=== PATIENT | male | born 1995 | race Caucasian/White ===

== ENCOUNTER 2017-07-03 19:40 | Emergency (ER) | payer MEDICAID ==
[2017-07-03 19:48] VITALS: BP 154/88
[2017-07-03] MEDS ORDERED: ACETAMINOPHEN 325 MG TABLET PO ONE (20:44)
--- NOTE | 2017-07-03 21:16 | ER Document Report ---
ED Hand/Wrist Injury - General Chief Complaint: L thumb injury Stated Complaint: THUMB INJURY Time Seen by Provider: 07/03/17 20:30 Mode of Arrival: Ambulatory Information source: Patient Notes: 22-year-old male presents to ED for injury to the left thumb. He states he hit it with a hammer accidentally on Monday. States he was hammering a nail into a board and is the nail hit his thumb. He states he has injured his thumb in the past and had to have it reattached. TRAVEL OUTSIDE OF THE [place] IN LAST 30 DAYS: No - HPI Injury to: Thumb Onset: Other - Monday Where: Work Timing: Still present Quality of pain: Sharp, Throbbing Severity: Moderate Pain Level: 3 Context: Other - Accidentally hit with a hammer - Related Data Allergies/Adverse Reactions: No Known Allergies Allergy (Unverified 07/03/17 19:44) Past Medical History - General Information source: Patient - Social History Smoking Status: Current Every Day Smoker Cigarette use (# per day): Yes - Pack per day Chew tobacco use (# tins/day): No Smoking Education Provided: Yes - 4 minutes Frequency of alcohol use: Social Drug Abuse: None 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 denies: COPD, DM, Thyroid Disfunction Patient has suicidal ideation: No Patient has homicidal ideation: No - Past Medical History Cardiac Medical History: Reports: Hx Hypertension Pulmonary Medical History: Reports: Hx Pneumonia Neurological Medical History: Reports: None, Hx Seizures - April 2016 from stress when his mother Endocrine Medical History: Reports: None Renal/ Medical History: Reports: None Malignancy Medical History: Reports None GI Medical History: Reports: None Musculoskeltal Medical History: Reports Hx Arthritis, Reports Hx Musculoskeletal Deformity, Reports Hx Musculoskeletal Trauma Skin Medical History: Reports None Psychiatric Medical History: Reports: Hx Anxiety, Hx Attention Deficit Hyperactivity Disorder, Hx Depression, Other - Panic attacks Traumatic Medical History: Reports: Hx Fractures - Right wrist right clavicle nose right ankle and all fingers Infectious Medical History: Reports: None Past Surgical History: Reports: Hx Orthopedic Surgery - Left thumb reattached and right wrist Review of Systems - Review of Systems Constitutional: No symptoms reported EENT: No symptoms reported Cardiovascular: No symptoms reported Respiratory: No symptoms reported Gastrointestinal: No symptoms reported Genitourinary: No symptoms reported Male Genitourinary: No symptoms reported Musculoskeletal: Other - Left thumb pain swelling bruising Skin: Change in color Hematologic/Lymphatic: No symptoms reported Neurological/Psychological: No symptoms reported -: Yes All other systems reviewed and negative Physical Exam - Vital signs Vitals: Temp Pulse Resp BP Pulse Ox 98.0 F 98 18 154/88 H 100 07/03/17 19:47 07/03/17 19:47 07/03/17 19:47 07/03/17 19:47 07/03/17 19:47 Interpretation: Normal - General General appearance: Appears well, Alert - HEENT Head: Normocephalic, Atraumatic Eyes: Normal Pupils: PERRL - Respiratory Respiratory status: No respiratory distress Chest status: Nontender Breath sounds: Normal Chest palpation: Normal - Cardiovascular Rhythm: Regular Heart sounds: Normal auscultation Murmur: No - Abdominal Inspection: Normal Distension: No distension Bowel sounds: Normal Tenderness: Nontender Organomegaly: No organomegaly - Back Back: Normal, Nontender - Extremities General upper extremity: Normal inspection, Nontender, Normal color, Normal ROM , Normal temperature General lower extremity: Normal inspection, Nontender, Normal ROM, Normal temperature, Normal weight bearing Shoulder: Normal Arm: Normal Elbow: Normal Forearm: Normal Wrist: Normal Hand: Tender, Ecchymosis, No evidence of human bite, No evidence of FB, Swelling Hip: Normal Thigh: Normal - Neurological Neuro grossly intact: Yes Cognition: Normal Orientation: AAOx4 [place] Coma Scale Eye Opening: Spontaneous [place] Coma Scale Verbal: Oriented [place] Coma Scale Motor: Obeys Commands [place] Coma Scale Total: 15 Speech: Normal Motor strength normal: LUE, RUE, LLE, RLE Sensory: Normal - Psychological Associated symptoms: Normal affect, Normal mood - Skin Skin Temperature: Warm Skin Moisture: Dry Skin Color: Normal Course - Re-evaluation Re-evalutation: 07/04/17 02:28 X-ray discussed with patient and written report given to patient for follow-up with orthopedics. Patient was encouraged to use Tylenol Motrin for his contusion to his thumb and elevated and iced the injury. - Vital Signs Vital signs: Temp Pulse Resp BP Pulse Ox 98.0 F 98 18 154/88 H 100 07/03/17 19:47 07/03/17 19:47 07/03/17 19:47 07/03/17 19:47 07/03/17 19:47 - Diagnostic Test Radiology reviewed: Image reviewed, Reports reviewed Discharge - Discharge Clinical Impression: Contusion of left thumb Qualifiers: Encounter type: initial encounter Damage to nail status: without damage Qualified Code(s): S60.012A - Contusion of left thumb without damage to nail, initial encounter HTN (hypertension) Qualifiers: Hypertension type: unspecified Qualified Code(s): I10 - Essential (primary) hypertension Condition: Stable Disposition: HOME, SELF-CARE Additional Instructions: CONTUSION: Your injury has resulted in a contusion -- a crushing of the deep tissues. No injury to important structures was detected during the physician's exam. Contusions vary in the amount of pain they cause, and in the length of time required for healing. Typically, the area will become bruised, and will remain painful to touch for two or three weeks. However, most patients are back to working and playing within a few days. After the initial period of rest and cold-packs, your symptoms (together with the doctor's recommendations) will determine how rapidly you can get back to full activity. Usually this means "do what feels okay, but don't do things that hurt." If re-examination was recommended, it's important to follow up as instructed. Call the doctor or return any time if pain increases, if swelling becomes severe, if you develop numbness or weakness in an injured extremity, or if any other alarming symptoms occur. USE OF TYLENOL (ACETAMINOPHEN): Acetaminophen may be taken for pain relief or fever control. It's much safer than aspirin, offering a wider range of "safe" dosages. It is safe during . Some brand names are Tylenol, Panadol, Datril, Anacin 3, Tempra, and Liquiprin. Acetaminophen can be repeated every four hours. The following are maximum recommended dosages: WEIGHT Dose Drops Elixir Chewable( 80mg) (LBS.) drprs=droppers tsp=teaspoon 6 40 mg 0.4 ml (1/2) 6-11 80 mg 0.8 ml (full) tsp 1 tab 12-16 120 mg 1 1/2 drprs 3/4 tsp 1 1/2 tabs 17-23 160 mg 2 drprs 1 tsp 2 tabs 24-30 240 mg 3 drprs 1 1/2 tsp 3 tabs 30-35 320 mg 2 tsp 4 tabs 36-41 360 mg 2 1/4 tsp 4 1/2 tabs 42-47 400 mg 2 1/2 tsp 5 tabs 48-53 480 mg 3 tsp 6 tabs 54-59 520 mg 3 1/4 tsp 6 1/2 tabs 60-64 560 mg 3 1/2 tsp 7 tabs 65-70 600 mg 3 3/4 tsp 7 1/2 tabs 71-76 640 mg 4 tsp 8 tabs 77-82 720 mg 4 1/2 tsp 9 tabs 83-88 800 mg 5 tsp 10 tabs >89 pounds or adults 650 mg to 900 mg Acetaminophen can be repeated every four hours. Maximum dose not to exceed 4000 mg a day. These maximum recommended dosages are slightly higher than the dosages written on the product container, but these dosages are very safe and below the toxic dosage for acetaminophen. ICE & ELEVATION: Apply ice packs frequently against the painful area. Many different schedules are recommended, such as "20 minutes on, 20 minutes off" or "one hour ice, two hours rest." If you need to work, you may need to go longer between ice treatments. You should plan to have the area ice packed AT LEAST one- fourth of the time. The ice should be applied over the wrap, tape, or splint, or over a layer of cloth -- not directly against the skin. Some ice bags have a built-in cloth and can be put directly on the skin. Your injured part should be elevated as much as possible over the next 48 hours. Try to keep the injury above the level of the heart. Avoid use of the injured area. Elevation and rest will decrease the swelling. USE OF [id number] IBUPROFEN: Ibuprofen (Advil, Nuprin, Medipren, Motrin IB) is a medication for fever and pain control. In addition, it has anti- inflammatory effects which may be beneficial, especially in the treatment of injuries. It's best to take ibuprofen with food. Persons with ulcer disease or allergy to aspirin should notify their physician of this before taking ibuprofen. Ibuprofen can be given every four to six hours, for a total of four doses daily. Age Pain or fever dose Antiinflammatory dose 6-8 yr 200 mg (1 tab) 200 mg (1 tab) 9-11 yr 200 mg (1 tab) 200-400 mg (1-2 tab) 11-14 yr 200-400 mg (1-2 tab) 400 mg (2 tab) 15-adult 400 mg (2 tab) 600 mg (3 tab) FOLLOW-UP CARE: If you have been referred to a physician for follow-up care, call the physician s office for an appointment as you were instructed or within the next two days. If you experience worsening or a significant change in your symptoms, notify the physician immediately or return to the Emergency Department at any time for re-evaluation. Prescriptions: Ibuprofen 800 mg PO Q8HP PRN #20 tablet PRN Reason: Forms: Elevated Blood Pressure, Smoking Cessation Education, Return to Work Referrals: STU HOFFMANN DO [ACTIVE STAFF] - Follow up as needed
--- NOTE | 2017-07-03 21:32 | RADIOLOGY REPORT (SQ) ---
EXAM DESCRIPTION: FINGER LEFT COMPLETED DATE/TIME: 07/03/2017 8:54 pm REASON FOR STUDY: thumb hit with hammer COMPARISON: None. NUMBER OF VIEWS: Three views. TECHNIQUE: AP, lateral, and oblique images acquired of the left thumb. LIMITATIONS: None. FINDINGS: MINERALIZATION: Normal. BONES: No acute fracture or dislocation. No worrisome bone lesions. SOFT TISSUES: Dorsal distal thumb soft tissue swelling. No foreign body. OTHER: No other significant finding. IMPRESSION: Dorsal distal thumb soft tissue swelling. No underlying fracture. COMMENT: SITE OF TRAUMA/COMPLAINT MARKED/STAMP COMPLETED: Yes TECHNICAL DOCUMENTATION: JOB ID: [id number] [employer]- All Rights Reserved
== END 2017-07-03 22:13 | disposition home or self-care (01) ==
LOC: ER 19:40
DX: S60.012A Contusion of left thumb without damage to nail, initial encounter (principal); I10 Essential (primary) hypertension; W22.8XXA Striking against or struck by other objects, initial encounter; F17.210 Nicotine dependence, cigarettes, uncomplicated
CPT/HCPCS: 99406; 99283; 73140; J3490

== ENCOUNTER 2017-07-09 22:09 | Emergency (ER) | payer SELFPAY ==
[2017-07-09 22:27] VITALS: BP 143/87
[2017-07-09] MEDS ORDERED: BUPIVACAINE HCL 0.75% INJ/PF (7.5 MG/1 ML) 10 ML SDV INJ ONE (22:42)
[2017-07-09] MEDS ORDERED: HYDROCODONE/ACETAMINOPHEN 5-325 MG (6 TAB/ER DISP) PO PRN (23:36)
--- NOTE | 2017-07-09 23:43 | ER Document Report ---
ED Hand/Wrist Injury - General Chief Complaint: Thumb Injury Stated Complaint: THUMB PAIN Time Seen by Provider: 07/09/17 22:31 Mode of Arrival: Ambulatory Information source: Patient Notes: Patient is a 22-year-old male who presents to the ER today for pain to his left thumb after hitting it with a hammer at work. Patient was seen here on 03 July, just a few days ago, for the same injury but states that he had a large blood blister that is now popped and the skin has opened and it is throbbing. Patient comes requesting numbing for the thumb. There is damage to the nail bed. TRAVEL OUTSIDE OF THE [place] IN LAST 30 DAYS: No - Related Data Allergies/Adverse Reactions: No Known Allergies Allergy (Unverified 07/03/17 19:44) Past Medical History - General Information source: Patient - Social History Smoking Status: Unknown if Ever Smoked Family History: Arthritis, CAD, CVA, Hyperlipidemia, Hypertension, Malignancy. denies: COPD, DM, Thyroid Disfunction Patient has suicidal ideation: No Patient has homicidal ideation: No - Past Medical History Cardiac Medical History: Reports: Hx Hypertension Pulmonary Medical History: Reports: Hx Pneumonia Neurological Medical History: Reports: Hx Seizures - April 2016 from stress when his mother Renal/ Medical History: Denies: Hx Peritoneal Dialysis Musculoskeltal Medical History: Reports Hx Arthritis, Reports Hx Musculoskeletal Deformity, Reports Hx Musculoskeletal Trauma Psychiatric Medical History: Reports: Hx Anxiety, Hx Attention Deficit Hyperactivity Disorder, Hx Depression Traumatic Medical History: Reports: Hx Fractures - Right wrist right clavicle nose right ankle and all fingers Past Surgical History: Reports: Hx Orthopedic Surgery - Left thumb reattached and right wrist Review of Systems - Review of Systems Constitutional: No symptoms reported EENT: No symptoms reported Cardiovascular: No symptoms reported Respiratory: No symptoms reported Gastrointestinal: No symptoms reported Genitourinary: No symptoms reported Male Genitourinary: No symptoms reported Musculoskeletal: See HPI Skin: See HPI Hematologic/Lymphatic: No symptoms reported Neurological/Psychological: No symptoms reported Physical Exam - Vital signs Vitals: Temp Pulse Resp BP Pulse Ox 97.6 F 79 20 143/87 H 100 07/09/17 22:26 07/09/17 22:26 07/09/17 22:26 07/09/17 22:26 07/09/17 22:26 - Notes Notes: PHYSICAL EXAMINATION: GENERAL: Well-appearing and in no acute distress. HEAD: Atraumatic, normocephalic. EYES: Pupils equal round and reactive to light, extraocular movements intact, sclera anicteric, conjunctiva are normal. NECK: Normal range of motion, supple without lymphadenopathy LUNGS: CTAB and equal. No wheezes rales or rhonchi. HEART: Regular rate and rhythm without murmurs EXTREMITIES: Normal range of motion, no pitting edema. No cyanosis. NEUROLOGICAL: Cranial nerves grossly intact. Normal sensory/motor exams. PSYCH: Normal mood, normal affect. SKIN: Warm, Dry, normal turgor, left thumb with open wound at the base of the nailbed, no bleeding, no erythema or purulent drainage Course - Re-evaluation Re-evalutation: 07/09/17 23:43 Digital block was achieved successfully with Sensorcaine to the left thumb. Patient feeling better. - Vital Signs Vital signs: Temp Pulse Resp BP Pulse Ox 97.6 F 79 20 143/87 H 100 07/09/17 22:26 07/09/17 22:26 07/09/17 22:26 07/09/17 22:26 07/09/17 22:26 Procedures - Additional Procedures digital block Time performed: 23:40 Additional Procedures: Other - DIGITAL THUMB BLOCK LEFT THUMB, WITH SENSORCAINE 0.75% AT BASE OF THUMB, DORSAL THUMB AND LOCALLY AROUND WOUND, NO BLEEDING, PT TOLERATED WELL, TOTAL OF 6 CC SENSORCAINE USED Discharge - Discharge Clinical Impression: Contusion of left thumb Qualifiers: Encounter type: initial encounter Damage to nail status: with damage Qualified Code(s): S60.112A - Contusion of left thumb with damage to nail, initial encounter Condition: Stable Disposition: HOME, SELF-CARE Additional Instructions: Return immediately for any new or worsening symptoms. Follow up with primary care provider, call tomorrow to make followup appointment. Forms: Return to Work
== END 2017-07-09 23:49 | disposition home or self-care (01) ==
LOC: ER 22:09
PROC: 3E0T3BZ Introduction of Anesthetic Agent into Peripheral Nerves and Plexi, Percutaneous Approach (ICD-10-PCS; principal; 2017-07-09)
DX: S60.112A Contusion of left thumb with damage to nail, initial encounter (principal); R20.0 Anesthesia of skin; W22.8XXA Striking against or struck by other objects, initial encounter
CPT/HCPCS: 99283; 64455; J3490

== ENCOUNTER 2017-11-18 18:32 | Emergency (ER) | payer SELFPAY ==
[2017-11-18] MEDS ORDERED: FENTANYL CITRATE INJ/PF 100 MCG/2 ML AMPUL IV ONE (18:59)
--- NOTE | 2017-11-18 19:00 | ER Document Report ---
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 Fell off landed on a bit of a trailer. Landed on his abdomen. Having severe pain in his abdomen and only getting worse. Today feels extremely weak and having a hard time getting anything down. States that he has had multiple injuries he has never felt like this before. Pain is located in the central abdomen. Located in the mid back as well. Denied hitting his head. No loss of consciousness. No neck pain. No shortness of breath. I have greeted and performed a rapid initial assessment of this patient. A comprehensive ED assessment and evaluation of the patient, analysis of test results and completion of the medical decision making process will be conducted by additional ED providers. TRAVEL OUTSIDE OF THE [place] IN LAST 30 DAYS: No - Related Data Allergies/Adverse Reactions: No Known Allergies Allergy (Unverified 07/03/17 19:44) Past Medical History - General Information source: Patient - Social History Chew tobacco use (# tins/day): No Frequency of alcohol use: 2 beers a day Drug Abuse: Marijuana Lives with: Spouse/Significant other Family history: Reviewed & Not Pertinent - Past Medical History Cardiac Medical History: Reports: Hx Hypertension Pulmonary Medical History: Reports: Hx Pneumonia Neurological Medical History: Reports: Hx Seizures - April 2016 from stress when his mother Renal/ Medical History: Denies: Hx Peritoneal Dialysis Musculoskeltal Medical History: Reports Hx Arthritis, Reports Hx Musculoskeletal Deformity, Reports Hx Musculoskeletal Trauma Psychiatric Medical History: Reports: Hx Anxiety, Hx Attention Deficit Hyperactivity Disorder, Hx Depression Traumatic Medical History: Reports: Hx Fractures - Right wrist right clavicle nose right ankle and all fingers Past Surgical History: Reports: Hx Orthopedic Surgery - Left thumb reattached and right wrist Review of Systems - Review of Systems Constitutional: Malaise, Weakness. denies: Fever EENT: No symptoms reported. denies: Double vision, Ear pain, Throat pain, Difficulty swallowing, Throat swelling, Mouth pain Cardiovascular: denies: Chest pain, Palpitations, Heart racing Respiratory: denies: Cough, Hurts to breathe, Short of breath, Wheezing Gastrointestinal: Abdominal pain, Nausea. denies: Vomiting, Black stools, Rectal bleeding Genitourinary: No symptoms reported Male Genitourinary: No symptoms reported Musculoskeletal: Back pain, Muscle pain, Muscle stiffness. denies: Joint pain Skin: No symptoms reported Hematologic/Lymphatic: No symptoms reported Neurological/Psychological: No symptoms reported, Weakness. denies: Confusion, Numbness Physical Exam - Vital signs Vitals: Temp Pulse Resp BP Pulse Ox 99.0 F 96 20 133/60 H 97 11/18/17 18:41 11/18/17 18:41 11/18/17 18:41 11/18/17 18:41 11/18/17 18:41 Interpretation: Normal - General General appearance: Appears well, Alert - HEENT Head: Normocephalic, Atraumatic Eyes: Normal Pupils: PERRL - Respiratory Respiratory status: No respiratory distress Chest status: Nontender Breath sounds: Normal Chest palpation: Normal - Cardiovascular Rhythm: Regular Heart sounds: Normal auscultation Murmur: No - Abdominal Inspection: Normal Distension: No distension Bowel sounds: Normal Tenderness: Tender, Other - Tenderness epigastric region. Guarding. Organomegaly: No organomegaly - Back Back: Normal, Tender - Tenderness in the mid thoracic and lumbar spine area. No obvious step-offs. - Extremities General upper extremity: Normal inspection, Nontender, Normal color, Normal ROM , Normal temperature General lower extremity: Normal inspection, Nontender, Normal color, Normal ROM , Normal temperature, Normal weight bearing. No: Kareen's sign - Neurological Neuro grossly intact: Yes Cognition: Normal Orientation: AAOx4 [place] Coma Scale Eye Opening: Spontaneous [place] Coma Scale Verbal: Oriented [place] Coma Scale Motor: Obeys Commands [place] Coma Scale Total: 15 Speech: Normal Motor strength normal: LUE, RUE, LLE, RLE Sensory: Normal - Psychological Associated symptoms: Normal affect, Normal mood - Skin Skin Temperature: Warm Skin Moisture: Dry Skin Color: Normal Course - Vital Signs Vital signs: Temp Pulse Resp BP Pulse Ox 99.0 F 96 16 133/60 H 97 11/18/17 18:41 11/18/17 18:41 11/18/17 18:59 11/18/17 18:41 11/18/17 18:41
[2017-11-18 19:41] LABS: ABSOLUTE EOSINOPHILS # (AUTO) 0.2 10^3/uL (0.0-0.6); ABSOLUTE LYMPHOCYTES (AUTO) 1.1 10^3/uL (0.5-4.7); ABSOLUTE MONOCYTES (AUTO) 0.6 10^3/uL (0.1-1.4); ABSOLUTE NEUT (AUTO) 3.8 10^3/uL (1.7-8.2); BASOPHILS % (AUTO) 0.6 % (0-2); HEMATOCRIT 40.1 % (37.9-51.0); HEMOGLOBIN 13.9 g/dL (13.5-17.0); LYMPHOCYTES % (AUTO) 19.9 % (13-45); MEAN CORPUSCULAR HEMOGLOBIN 30.6 pg (27.0-33.4); MEAN CORPUSCULAR HGB CONC 34.7 g/dL (32.0-36.0); MEAN CORPUSCULAR VOLUME 88 fl (80-97); MONOCYTES % (AUTO) 10.6 % (3-13); PLATELET COUNT 245 10^3/uL (150-450); RED BLOOD COUNT 4.54 10^6/uL (4.35-5.55); RED CELL DISTRIBUTION WIDTH 14.5 % (11.5-14.0); SEGMENTED NEUTROPHILS % (AUTO) 65.9 % (42-78); TOTAL CELLS COUNTED % (AUTO) 100 %; WHITE BLOOD COUNT 5.7 10^3/uL (4.0-10.5)
--- NOTE | 2017-11-18 19:54 | RADIOLOGY REPORT (SQ) ---
EXAM DESCRIPTION: CT ABD/PELVIS WITH IV ONLY COMPLETED DATE/TIME: 11/18/2017 7:43 pm REASON FOR STUDY: abd pain COMPARISON: None. TECHNIQUE: CT scan of the abdomen and pelvis performed using helical scanning technique with dynamic intravenous contrast injection. No oral contrast. Images reviewed with lung, soft tissue, and bone windows. Reconstructed coronal and sagittal MPR images reviewed. Delayed images for evaluation of the urinary system also acquired. All images stored on PACS. All CT scanners at this facility use dose modulation, iterative reconstruction, and/or weight based d osing when appropriate to reduce radiation dose to as low as reasonably achievable (ALARA). [facility]: Dose Right [facility]: CareDose [facility]: Dose Right [facility]: Teradose 4D [facility]: Stylecrook CONTRAST TYPE AND DOSE: contrast/concentration: Isovue 370.00 mg/ml; Total Contrast Delivered: 75.0 ml; Total Saline Delivered: 67.0 ml RENAL FUNCTION: None required. The patient is less than 50 years old. RADIATION DOSE: CT Rad equipment meets quality standard of care and radiation dose reduction techniq ues were employed. CTDIvol: 5.2 - 6.5 mGy. DLP: 622 mGy-cm.. LIMITATIONS: None. FINDINGS: LOWER CHEST: No significant findings. No nodules or infiltrates. LIVER: Normal size. No masses. No dilated ducts. SPLEEN: Normal size. No focal lesions. PANCREAS: No masses. No significant calcifications. No adjacent inflammation or peripancreatic fluid collections. Pancreatic duct not dilated. GALLBLADDER: No identified stones by CT criteria. No inflammatory changes to suggest cholecystitis. ADRENAL GLANDS: No significant masses or asymmetry. RIGHT KIDNEY AND URETER: No solid masses. No significant calcifications. No hydronephrosis or hyd roureter. LEFT KIDNEY AND URETER: No solid masses. No significant calcifications. No hydronephrosis or hydr oureter. AORTA AND VESSELS: No aneurysm. No dissection. Renal arteries, SMA, celiac without stenosis. RETROPERITONEUM: No retroperitoneal adenopathy, hemorrhage or masses. BOWEL AND PERITONEAL CAVITY: No masses or inflammatory changes. No free fluid or peritoneal masses. APPENDIX: Normal. PELVIS: No mass. No free fluid. Normal bladder. ABDOMINAL WALL: No masses. No hernias. BONES: No significant or acute findings. OTHER: No other significant finding. IMPRESSION: NO SIGNIFICANT OR ACUTE FINDING IN THE ABDOMEN OR PELVIS ON CT SCAN WITH IV CONTRAST. TECHNICAL DOCUMENTATION: JOB ID: [id number] Quality ID # [id number]: Final reports with documentation of one or more dose reduction techniques (e.g., Au tomated exposure control, adjustment of the mA and/or kV according to patient size, use of iterative reconstruction technique) 2010 [employer]- All Rights Reserved Reading location - IP/workstation name: [email or web address]
--- NOTE | 2017-11-18 20:08 | RADIOLOGY REPORT (SQ) ---
EXAM DESCRIPTION: T SPINE AP/LAT COMPLETED DATE/TIME: 11/18/2017 7:57 pm REASON FOR STUDY: fall off roof COMPARISON: None. NUMBER OF VIEWS: Three views. TECHNIQUE: AP and lateral radiographic images acquired of the thoracic spine. LIMITATIONS: None. FINDINGS: MINERALIZATION: Normal. ALIGNMENT: Normal. No scoliosis. VERTEBRAE: No fracture or bone lesion. Maintained height, normal segmentation. DISCS: No significant loss of height or significant narrowing. No large osteophytes. HARDWARE: None in the spine. MEDIASTINUM AND SOFT TISSUES: Normal heart size and aortic contour. No soft tissue abnormality. VISUALIZED LUNG DE LEON: Clear. OTHER: Incidental note is made of urinary excretion of previously administered intravenous contrast. IMPRESSION: NO SIGNIFICANT RADIOGRAPHIC FINDING IN THE THORACIC SPINE. TECHNICAL DOCUMENTATION: JOB ID: [id number] [employer]- All Rights Reserved Reading location - IP/workstation name: [email or web address]
[2017-11-18 21:05] LABS: ALANINE AMINOTRANSFERASE 32 U/L (21-72); ALBUMIN 4.1 g/dL (3.5-5.0); ALKALINE PHOSPHATASE 78 U/L (38-126); ANION GAP 10 (5-19); ASPARTATE AMINO TRANSFERASE 36 U/L (17-59); BILIRUBIN,DIRECT 0.3 mg/dL (0.0-0.4); BILIRUBIN,TOTAL 0.3 mg/dL (0.2-1.3); BLOOD UREA NITROGEN 9 mg/dL (7-20); CALCIUM 9.3 mg/dL (8.4-10.2); CARBON DIOXIDE 27 mmol/L (22-30); CHLORIDE 104 mmol/L (98-107); GLUCOSE 97 mg/dL (75-110); LIPASE 128.5 U/L (23-300); SODIUM 141.4 mmol/L (137-145); TOTAL PROTEIN 6.6 g/dL (6.3-8.2)
[2017-11-18 21:51] LABS: APPEARANCE,URINE CLEAR; BILIRUBIN,URINE NEGATIVE (NEGATIVE); COLOR,URINE YELLOW; GLUCOSE, URINE NEGATIVE (NEGATIVE); KETONES,URINE NEGATIVE (NEGATIVE); LEUKOCYTE ESTERASE,URINE NEGATIVE (NEGATIVE); NITRITE,URINE NEGATIVE (NEGATIVE); PROTEIN,URINE NEGATIVE (NEGATIVE); UROBILINOGEN,URINE NEGATIVE mg/dL (<2.0)
--- NOTE | 2017-11-18 22:34 | ER Document Report ---
ED General - General Chief Complaint: Abdominal Pain Stated Complaint: FALL/ABDOMINAL PAIN Time Seen by Provider: 11/18/17 18:57 Mode of Arrival: Ambulatory Information source: Patient Notes: 22-year-old male patient presents with complaints of right lower back pain which extends into the right lateral abdomen after sustaining a fall 3 days ago. Patient reports that he fell off of a roof of a 1 story home and reports that he landed on his right flank and low back onto a railing of a trailer. Patient has no visible injuries on inspection. Patient reports that his pain has been persistent since the fall otherwise worsened over the last 24 hours. Patient reports that today he vomited twice and had 2 episodes of diarrhea. Patient denies any chest pain, shortness of breath, fever, chills or dysuria. TRAVEL OUTSIDE OF THE [place] IN LAST 30 DAYS: No - Related Data Allergies/Adverse Reactions: No Known Allergies Allergy (Unverified 07/03/17 19:44) Past Medical History - General Information source: Patient - Social History Smoking Status: Current Every Day Smoker Chew tobacco use (# tins/day): No Frequency of alcohol use: 2 beers a day Drug Abuse: Marijuana Lives with: Spouse/Significant other Family History: Arthritis, CAD, CVA, Hyperlipidemia, Hypertension, Malignancy. denies: COPD, DM, Thyroid Disfunction Patient has suicidal ideation: No Patient has homicidal ideation: No - Past Medical History Cardiac Medical History: Reports: Hx Hypertension Pulmonary Medical History: Reports: Hx Pneumonia Neurological Medical History: Reports: Hx Seizures - April 2016 from stress when his mother Renal/ Medical History: Denies: Hx Peritoneal Dialysis Musculoskeltal Medical History: Reports Hx Arthritis, Reports Hx Musculoskeletal Deformity, Reports Hx Musculoskeletal Trauma Psychiatric Medical History: Reports: Hx Anxiety, Hx Attention Deficit Hyperactivity Disorder, Hx Depression Traumatic Medical History: Reports: Hx Fractures - Right wrist right clavicle nose right ankle and all fingers Past Surgical History: Reports: Hx Orthopedic Surgery - Left thumb reattached and right wrist Review of Systems - Review of Systems Constitutional: No symptoms reported EENT: No symptoms reported Cardiovascular: No symptoms reported Respiratory: No symptoms reported Gastrointestinal: See HPI Genitourinary: No symptoms reported Male Genitourinary: No symptoms reported Musculoskeletal: No symptoms reported Skin: No symptoms reported Hematologic/Lymphatic: No symptoms reported Neurological/Psychological: No symptoms reported Physical Exam - Vital signs Vitals: Temp Pulse Resp BP Pulse Ox 99.0 F 96 20 133/60 H 97 11/18/17 18:41 11/18/17 18:41 11/18/17 18:41 11/18/17 18:41 11/18/17 18:41 - Notes Notes: PHYSICAL EXAMINATION: GENERAL: Well-appearing, well-nourished and in no acute distress. HEAD: Atraumatic, normocephalic. EYES: Pupils equal round and reactive to light, extraocular movements intact, sclera anicteric, conjunctiva are normal. ENT: Nares patent, oropharynx clear without exudates. Moist mucous membranes. NECK: Normal range of motion, supple without lymphadenopathy LUNGS: Breath sounds clear to auscultation bilaterally and equal. No wheezes rales or rhonchi. HEART: Regular rate and rhythm without murmurs ABDOMEN: Soft, mildly tender, nondistended abdomen. No guarding, no rebound. No masses appreciated. Musculoskeletal: Normal range of motion, no pitting or edema. No cyanosis. No brusing or abrasions noted at site of patients pain to right lumbar region. NEUROLOGICAL: Cranial nerves grossly intact. Normal speech, normal gait. Normal sensory, motor exams PSYCH: Normal mood, normal affect. SKIN: Warm, Dry, normal turgor, no rashes or lesions noted. Course - Re-evaluation Re-evalutation: 22-year-old male presenting with complaint of right-sided low back pain, flank pain and low abdominal pain after sustaining a fall off of a one-story house 3 days ago. Patient reports that today he vomited 2 and had 2 episodes of diarrhea. Patient was initially seen by the provider in triage. Patient's examination reveals mild tenderness to the right paraspinous area as well as the right lower quadrant. However there is no guarding no rebound and abdomen is very soft. CBC, comprehensive, lipase are all negative with no acute findings. Urinalysis does not show any signs of infection. CT abdomen pelvis is unremarkable. Thoracic x-ray is also unremarkable. Repeat abdominal examination reveals a soft nontender abdomen. There is no guarding, no rebound, no peritoneal signs. Case discussed with Dr. Caballero. Patient will be discharged home with return precautions. Patient will also be given some pain medication for likely musculoskeletal strain of his lower back. Patient is agreeable to this plan. - Vital Signs Vital signs: Temp Pulse Resp BP Pulse Ox 98.9 F 88 20 134/71 H 97 11/18/17 23:59 11/18/17 23:59 11/18/17 23:59 11/18/17 23:59 11/18/17 23:59 - Laboratory Result Diagrams: 11/18/17 19:28 11/18/17 20:34 Laboratory results interpreted by me: 11/18/17 11/18/17 19:28 21:28 RDW 14.5 H Urine Blood SMALL H Discharge - Discharge Clinical Impression: Back pain Qualifiers: Back pain location: low back pain Chronicity: unspecified Back pain laterality : right Sciatica presence: without sciatica Qualified Code(s): M54.5 - Low back pain Abdominal pain Qualifiers: Abdominal location: right lower quadrant Qualified Code(s): R10.31 - Right lower quadrant pain Vomiting Qualifiers: Vomiting type: unspecified Vomiting Intractability: unspecified Nausea presence : with nausea Qualified Code(s): R11.2 - Nausea with vomiting, unspecified Diarrhea Qualifiers: Diarrhea type: unspecified type Qualified Code(s): R19.7 - Diarrhea, unspecified Disposition: HOME, SELF-CARE Additional Instructions: Abdominal Pain There are many causes of abdominal pain. Pain can mean a serious problem requiring surgery (such as appendicitis). It can also be an innocent problem that goes away on its own (such as a viral infection). Often, time must pass to determine the cause of pain. The physician does not feel that hospitalization is necessary, at present. Things may change within the next 24 hours. Call the doctor or come back for re- examination if any problems occur, such as: (1) Pain that becomes more severe, steady, or becomes concentrated in one specific area. Also, pain that is more severe with movement or coughing. (2) Vomiting that persists or becomes more frequent. (3) Blood in the vomitus, urine, or bowel movements. Blood in the stool may have a tarry or black appearance. (4) Shaking chills or fever greater than 100 degrees F. (5) The abdomen becomes more distended or swollen. (6) Bowel movements cease. (7) Failure to improve as expected. Your lab work, CAT scan and x-ray today were normal today. Please use the pain and nausea medications as needed. Please return to the emergency department if you develop any of the above symptoms. We are happy to see you for a recheck if your abdominal pain persists or worsens. Prescriptions: Hydrocodone/Acetaminophen [Hydrocodon-Acetaminophen 5-325] 1 each PO Q4 PRN #10 tablet PRN Reason: For Pain Referrals: NORBERT CASTANO, [Primary Care Provider] - Follow up as needed
[2017-11-18] MEDS ORDERED: HYDROCODONE/ACETAMINOPHEN 5-325 MG (6 TAB/ER DISP) PO PRN (23:17)
[2017-11-18] MEDS ORDERED: ONDANSETRON ODT 4 MG TAB (6 TAB/ER DISP) PO PRN (23:17)
[2017-11-19] VITALS: BP 134/71
== END 2017-11-18 23:59 | disposition home or self-care (01) ==
LOC: ER 18:32
DX: M54.5 Low back pain (principal); R10.9 Unspecified abdominal pain; R10.31 Right lower quadrant pain; W13.2XXA Fall from, out of or through roof, initial encounter; Y92.008 Other place in unspecified non-institutional (private) residence as the place of occurrence of the external cause; R11.2 Nausea with vomiting, unspecified; R19.7 Diarrhea, unspecified; I10 Essential (primary) hypertension; F17.200 Nicotine dependence, unspecified, uncomplicated
CPT/HCPCS: 99284; 96374; 36415; 83690; 85025; 80053; 81001; 72070; 74177; J3010

== ENCOUNTER 2017-11-20 21:22 | Emergency (ER) | payer SELFPAY ==
[2017-11-20 21:35] VITALS: BP 125/78
== END 2017-11-20 21:45 | disposition left against medical advice (07) ==
LOC: ER 21:22
DX: Z53.21 Procedure and treatment not carried out due to patient leaving prior to being seen by health care provider (principal)

== ENCOUNTER 2019-11-05 08:55 | Observation (INO) | payer BC ==
[2019-11-05] MEDS ORDERED: NORMAL SALINE 1000 ML 1,000 ML IV ONE ×2 (09:55→11:09)
[2019-11-05] MEDS ORDERED: KETOROLAC TROMETHAMINE INJ/PF 30 MG/1 ML SDV IV ONE (09:55)
[2019-11-05 09:58] LABS: HEMATOCRIT 43.1 % (37.9-51.0); HEMOGLOBIN 14.9 g/dL (13.5-17.0); MEAN CORPUSCULAR HEMOGLOBIN 32.8 pg (27.0-33.4); MEAN CORPUSCULAR HGB CONC 34.5 g/dL (32.0-36.0); MEAN CORPUSCULAR VOLUME 95 fl (80-97); PLATELET COUNT 210 10^3/uL (150-450); RED BLOOD COUNT 4.53 10^6/uL (4.35-5.55); WHITE BLOOD COUNT 12.6 10^3/uL (4.0-10.5)
--- NOTE | 2019-11-05 10:01 | ER Document Report ---
ED General - General Chief Complaint: Chest Pain Stated Complaint: CHEST PAIN Time Seen by Provider: 11/05/19 09:35 Information source: Patient TRAVEL OUTSIDE OF THE [place] IN LAST 30 DAYS: No - HPI Notes: 24-year-old male with a history of an NC x1 year ago presents to the emergency room for complaints of abdominal pain, left-sided chest pain and SOB that started suddenly at 730 this morning. Patient states pain comes in waves reports left-sided chest pain that radiates to his left arm with numbness. Patient also reports he "feels like my heart is acting funny". reports pain is sharp in left side of chest. Dates that this pain is "similar to the pain he had with my heart attack a year ago". pain is not worse with movement, not worse with lying down. Has not tried any [id number] medications. Does not take a baby aspirin. Patient smokes a pack a day of cigarettes. Reports history of blood clots on his father side, no history of NC or stroke on mother father side. Patient states he did have a bowel movement today, no melena. Patient reports he takes Adderall 20 mg 3 times a day instant release prescribed by his primary care provider for ADHD. 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 Does have a history of cocaine abuse he states more than 5 years ago. Patient reports he did not get a stent placed with his heart attack. denies fevers, chills,palpitations, dyspnea, nausea, vomiting, diarrhea, hematuria,blurred vision, double vision, loss of vision, speech changes, LH, dizziness, syncope, headaches, wheezing, ST, URI, neck pain, weakness, bowel or bladder dysfunction, saddle anesthesia, numbness or tingling in bilateral upper or lower extremities equally, muscle paralysis, weakness in bilateral upper or lower extremities equally or rash. - Related Data Allergies/Adverse Reactions: No Known Allergies Allergy (Verified 11/05/19 09:41) Home Medications: adderall Past Medical History - General Information source: Patient - Social History Smoking Status: Current Every Day Smoker Chew tobacco use (# tins/day): No Frequency of alcohol use: Social Drug Abuse: Marijuana Family History: Arthritis, CAD, CVA, Hyperlipidemia, Hypertension, Malignancy. denies: COPD, DM, Thyroid Disfunction Patient has homicidal ideation: No - Past Medical History Cardiac Medical History: Reports: Hx Heart Attack - 2019, Hx Hypertension Denies: Hx Hypercholesterolemia Pulmonary Medical History: Reports: Hx Pneumonia Neurological Medical History: Reports: Hx Seizures - April 2016 from stress when his mother Renal/ Medical History: Denies: Hx Peritoneal Dialysis Musculoskeletal Medical History: Reports Hx Arthritis, Reports Hx Musculoskeletal Deformity, Reports Hx Musculoskeletal Trauma Psychiatric Medical History: Reports: Hx Anxiety, Hx Attention Deficit Hyperactivity Disorder, Hx Depression Traumatic Medical History: Reports: Hx Fractures - Right wrist right clavicle nose right ankle and all fingers Past Surgical History: Reports: Hx Orthopedic Surgery - Left thumb reattached and right wrist Review of Systems - Review of Systems Constitutional: See HPI EENT: No symptoms reported Cardiovascular: See HPI, Chest pain, Heart racing Respiratory: Short of breath Gastrointestinal: See HPI Genitourinary: No symptoms reported Male Genitourinary: No symptoms reported Musculoskeletal: No symptoms reported Skin: No symptoms reported Hematologic/Lymphatic: No symptoms reported Neurological/Psychological: No symptoms reported Physical Exam - Vital signs Vitals: Temp Pulse Resp BP Pulse Ox 98.1 F 94 16 138/80 H 98 11/05/19 09:05 11/05/19 09:05 11/05/19 09:05 11/05/19 09:05 11/05/19 09:05 - Notes Notes: MEDICATIONS: I agree with the patient medications as charted by the RN. ALLERGIES: I agree with the allergies as charted by the RN. PAST MEDICAL HISTORY/PAST SURGICAL HISTORY: Reviewed and agree as charted by RN. SOCIAL HISTORY: Reviewed and agree as charted by RN. FAMILY HISTORY: No significant familial comorbid conditions directly related to patient complaint EXAM: Reviewed vital signs as charted by RN. PHYSICAL EXAMINATION:reviewed vital signs by RN GENERAL: Well-appearing, well-nourished and in mild distress HEAD: Atraumatic, normocephalic. EYES: Pupils equal round and reactive to light, extraocular movements intact, sclera anicteric, conjunctiva are normal. ENT: Nares patent, oropharynx clear without exudates. Moist mucous membranes. NECK: Normal range of motion, supple without lymphadenopathy LUNGS: Breath sounds clear to auscultation bilaterally and equal. No wheezes rales or rhonchi. HEART: Regular rate and rhythm without murmurs ABDOMEN: Soft, nondistended abdomen. Generalized tenderness in all quadrants. no guarding, no rebound. No masses appreciated. No CVA tenderness appreciated bilaterally. Musculoskeletal: Normal range of motion, no pitting or edema. No cyanosis. NEUROLOGICAL: Cranial nerves grossly intact. Normal speech, normal gait. Normal sensory, motor exams PSYCH: Normal mood, normal affect. SKIN: Warm, Dry, normal turgor, no rashes or lesions noted. Course - Re-evaluation Re-evalutation: 11/05/19 10:07 Afebrile slightly tachycardic at 102, blood pressure, respiratory rate, pulse ox and temperature normal. Nurses notes reviewed. CBC slightly elevated leukoesterase, CMP with elevated hepatic levels, will obtain hepatitis panel, no renal abnormalities, no electrolyte disturbances. EKG negative for STEMI. troponin negative, CK CK-MB elevated. 1100-D dimer elevated, will obtain a CTA of chest. 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 consulted with Dr. Josemanuel Baig, ER supervising physician regarding obtaining a CTA of abdomen and felt that this was the prudent due to hx of drug use, NC to assess for any aortic dissection. CTA of chest and abdomen negative for PE, AAA or aortic dissection. Due to patient's significant medical history at age 24 with having acute onset left-sided chest pain with radiation to left arm with numbness and tingling that comes and goes, feel that patient is appropriate for observation. Consulted with Dr. Chadwick Rich [id number] who agreed to have patient to be observation for chest pain on telemetry. Will admit to medical service for further evaluation and management of care. 11/05/19 14:18 - Vital Signs Vital signs: Temp Pulse Resp BP Pulse Ox 98.1 F 94 14 141/95 H 100 11/05/19 09:28 11/05/19 09:05 11/05/19 13:37 11/05/19 13:37 11/05/19 13:37 - Laboratory Result Diagrams: 11/05/19 09:39 11/05/19 09:39 Laboratory results interpreted by me: 11/05/19 11/05/19 11/05/19 09:39 09:39 09:39 WBC 12.6 H Seg Neuts % (Manual) 85 H Lymphocytes % (Manual) 7 L Abs Neuts (Manual) 10.7 H D-Dimer Glucose 159 H AST 187 H ALT 195 H Creatine Kinase 608 H CK-MB (CK-2) 6.01 H 11/05/19 09:39 WBC Seg Neuts % (Manual) Lymphocytes % (Manual) Abs Neuts (Manual) D-Dimer 0.57 H Glucose AST ALT Creatine Kinase CK-MB (CK-2) - EKG Interpretation by Me EKG shows normal: Sinus rhythm Rate: Normal Discharge - Discharge Clinical Impression: Chest pain, Shortness of breath, Elevated CK-MB level, Elevated liver enzymes Condition: Stable Disposition: ADMITTED OBSERVATION Admitting Provider: Kristel (Hospitalist) Unit Admitted: Telemetry
[2019-11-05 10:12] LABS: ALBUMIN 4.6 g/dL (3.5-5.0); ALKALINE PHOSPHATASE 101 U/L (38-126); ANION GAP 8 (5-19); ASPARTATE AMINO TRANSFERASE 187 U/L (17-59); BILIRUBIN,TOTAL 0.5 mg/dL (0.2-1.3); BLOOD UREA NITROGEN 12 mg/dL (7-20); CALCIUM 9.5 mg/dL (8.4-10.2); CARBON DIOXIDE 26 mmol/L (22-30); CHLORIDE 104 mmol/L (98-107); CREATINE KINASE 608 U/L (55-170); GLUCOSE 159 mg/dL (75-110); POTASSIUM 4.2 mmol/L (3.6-5.0); TOTAL PROTEIN 7.3 g/dL (6.3-8.2)
[2019-11-05 10:24] LABS: ABSOLUTE LYMPHOCYTES# (MANUAL) 0.9 10^3/uL (0.5-4.7); ABSOLUTE MONOCYTES # (MANUAL) 0.5 10^3/uL (0.1-1.4); BASOPHILS % (MANUAL) 0 % (0-2); EOSINOPHILS % (MANUAL) 0 % (0-6); LYMPHOCYTES % (MANUAL) 7 % (13-45); MONOCYTES % (MANUAL) 4 % (3-13); PLATELET COMMENT ADEQUATE; RBC MORPHOLOGY COMMENT NORMO-CYTIC/CHROMIC; SEGMENTED NEUTROPHILS % (MAN) 85 % (42-78); TOTAL CELLS COUNTED 100
[2019-11-05 10:29] LABS: CREATINE KINASE MB 6.01 ng/mL (<4.55)
[2019-11-05 10:30] LABS: TROPONIN I < 0.012 ng/mL
[2019-11-05 10:49] LABS: URINE BARBITURATES SCREEN NEGATIVE; URINE BENZODIAZEPINES SCREEN NEGATIVE; URINE COCAINE SCREEN NEGATIVE; URINE METHADONE SCREEN NEGATIVE; URINE PHENCYCLIDINE SCREEN NEGATIVE
[2019-11-05 10:55] LABS: URINE AMPHETAMINES SCREEN UNCONFIRMED POSITIVE; URINE MARIJUANA (THC) SCREEN UNCONFIRMED POSITIVE
[2019-11-05 11:21] LABS: INTERNATIONAL RATION (INR) 0.84; PROTHROMBIN TIME 11.5 SEC (11.4-15.4)
--- NOTE | 2019-11-05 11:55 | RADIOLOGY REPORT (SQ) ---
EXAM DESCRIPTION: CTA CHEST IMAGES COMPLETED DATE/TIME: 11/05/2019 11:38 am REASON FOR STUDY: sob, elevated D dimer COMPARISON: None. TECHNIQUE: CT scan of the chest performed using helical scanning technique with dynamic intravenous contrast injection. Images reviewed with lung, soft tissue and bone windows. Reconstructed coronal and sagittal MPR images reviewed. Additional 3 dimensional post-processing performed to develop Maximal Intensity Projection images (WI P). All images stored on PACS. All CT scanners at this facility use dose modulation, iterative reconstruction, and/or weight based d osing when appropriate to reduce radiation dose to as low as reasonably achievable (ALARA). [facility]: Dose Right [facility]: CareDose [facility]: Dose Right [facility]: Teradose 4D [facility]: [employer] CONTRAST TYPE AND DOSE: contrast/concentration: Isovue 350.00 mg/ml; Total Contrast Delivered: 81.0 ml; Total Saline Delivered: 70.0 ml Contrast bolus adequate for pulmonary arteries and aorta. RENAL FUNCTION: BUN 12 creatinine 0.96. RADIATION DOSE: CT Rad equipment meets quality standard of care and radiation dose reduction techniq ues were employed. CTDIvol: 7.4 - 11.3 mGy. DLP: 829 mGy-cm. . LIMITATIONS: None. FINDINGS: LUNGS AND PLEURA: No masses, infiltrates, or pneumothorax. No pleural effusions or pleura l calcifications. AORTA AND GREAT VESSELS: No aneurysm. No dissection. HEART: No pericardial effusion. No significant coronary artery calcifications. PULMONARY ARTERIES: No emboli visualized in the main pulmonary arteries or the segmental branches. HILAR AND MEDIASTINAL STRUCTURES: No identified masses or abnormal nodes. HARDWARE: None in the chest. UPPER ABDOMEN: No significant findings. Limited exam. THYROID AND OTHER SOFT TISSUES: No masses. No adenopathy. BONES: No acute or significant finding. 3D MIPS: Confirm above findings. OTHER: No other significant finding. IMPRESSION: NORMAL CTA OF THE CHEST. NO PULMONARY EMBOLI. COMMENT: Quality ID # [id number]: Final reports with documentation of one or more dose reduction techniques (e.g., Automated exposure control, adjustment of the mA and/or kV according to patient size, use of iterative reconstruction technique) TECHNICAL DOCUMENTATION: JOB ID: [id number] 2010 [employer]- All Rights Reserved Reading location - IP/workstation name: [email or web address]
--- NOTE | 2019-11-05 11:59 | RADIOLOGY REPORT (SQ) ---
EXAM DESCRIPTION: CTA ABDOMEN IMAGES COMPLETED DATE/TIME: 11/05/2019 11:38 am REASON FOR STUDY: severe abd pain hx of drug use/hx of CT COMPARISON: 11/18/2017. TECHNIQUE: CT scan of the abdominal aorta extending to the iliac bifurcation performed with intraven ous contrast using helical scanning technique with dynamic intravenous contrast injection. Images rev iewed with lung, soft tissue, and bone windows. Reconstructed coronal and sagittal MPR images reviewe d. All images stored on PACS. Advanced 3D imaging as volume rendering, MIPS, SSD performed? yes All CT scanners at this facility use dose modulation, iterative reconstruction, and/or weight based d osing when appropriate to reduce radiation dose to as low as reasonably achievable (ALARA). [facility]: Dose Right [facility]: CareDose [facility]: Dose Right [facility]: Teradose 4D [facility]: [employer] Simple CONTRAST TYPE AND DOSE: 81 mL Omnipaque 350- low osmolar. RENAL FUNCTION: BUN 12 creatinine 0.96. LIMITATIONS: None. FINDINGS: NON-CONTRASTED IMAGING: Post contrast images only. POST-CONTRAST IMAGING: AORTA AND VESSELS: No aneurysm. No dissection. Renal arteries, SMA, celiac without stenosis. LUNG BASES: No significant findings. No nodules or infiltrates. LIVER: Diffuse fatty infiltration. No masses or dilated ducts. SPLEEN: Normal size. No focal lesions. PANCREAS: No masses. No significant calcifications. No adjacent inflammation or peripancreatic fluid collections. Pancreatic duct not dilated. GALLBLADDER: Contracted. No identified stones by CT criteria. No inflammatory changes to suggest cho lecystitis. ADRENAL GLANDS: No significant masses or asymmetry. RIGHT KIDNEY AND URETER: No mass, calculi or urinary tract obstruction. LEFT KIDNEY AND URETER: No mass, calculi or urinary tract obstruction. RETROPERITONEUM: No retroperitoneal adenopathy, hemorrhage or masses. BOWEL AND PERITONEAL CAVITY: No masses or inflammatory changes. No free fluid or peritoneal masses. APPENDIX: Normal. ABDOMINAL WALL: No masses. No hernias. BONY STRUCTURES: No significant or acute findings. 3-D IMAGING: Confirms the above findings. OTHER: No other significant finding. IMPRESSION: 1. NO ABDOMINAL AORTIC ANEURYSM, DISSECTION OR SIGNIFICANT STENOSIS. 2. DIFFUSE FATTY INFILTRATION OF THE LIVER. NO OTHER SIGNIFICANT FINDINGS IN THE ABDOMEN. TECHNICAL DOCUMENTATION: JOB ID: [id number] Quality ID # [id number]: Final reports with documentation of one or more dose reduction techniques (e.g., Au tomated exposure control, adjustment of the mA and/or kV according to patient size, use of iterative reconstruction technique) 2010 [employer]- All Rights Reserved Reading location - IP/workstation name: [email or web address]
--- NOTE | 2019-11-05 14:45 | PDOC H&P ---
History of Present Illness Admission Date/PCP: 11/05/19 12:56 NORBERT CASTANO DO Patient complains of: Abdominal pain History of Present Illness: SYMONE HIGHTOWER is a 24 year old male with a history of cocaine abuse and myocardial infarction approximately 1 year ago in [place]. He states that today he woke up with a sharp pain in his stomach. It then began to hurt in his chest. He denied nausea and vomiting. He was not having any diarrhea. He was diaphoretic and lightheaded but not short of breath. When the pain increased he felt it prudent to go to the emergency department. Currently he feels quite achy. He is anxious. He denies chest discomfort at this time. Evaluation in the emergency department was negative for pulmonary embolus. CT scan of the abdomen revealed fatty liver. He does drink 6 beers or more daily. His first 2 troponins were less than 0.012. Tox screen was positive for marijuana and amphetamines. He does have a prescription for Adderall. Patient will be admitted for observation. We will finish his serial troponins. 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 He will be monitored on telemetry. A hepatitis panel has been ordered. I added a serum alcohol level to his blood work as well. He smokes 1 pack of cigarettes daily and so we will apply a nicotine patch. Because of his alcohol use liberal benzodiazepines will be available. Past Medical History Cardiac Medical History: Reports: Myocardial Infarction - 2019, Hypertension Denies: Hyperlipidema Pulmonary Medical History: Reports: Pneumonia Neurological Medical History: Reports: Seizures - April 2016 from stress when his mother Musculoskeltal Medical History: Reports: Arthritis Psychiatric Medical History: Reports: Attention Deficit Hyperactivity Disorder, Depression, Substance Abuse, Tobacco Dependency Past Surgical History Past Surgical History: Reports: Orthopedic Surgery - Left thumb reattached and right wrist Social History Information Source: Patient Lives with: Family Smoking Status: Current Every Day Smoker Cigarettes Packs Per Day: 1 Electronic Cigarette use?: No Frequency of Alcohol Use: Heavy Hx Recreational Drug Use: Yes Drugs: Cocaine, Marijuana Hx Prescription Drug Abuse: No - Advance Directive Resuscitation Status: Full Code Surrogate healthcare decision maker:: Family History Family History: Arthritis, CAD, CVA, Hyperlipidemia, Hypertension, Malignancy, Other - Alcoholism. denies: COPD, DM, Thyroid Disfunction Parental Family History Reviewed: Yes Children Family History Reviewed: Yes Sibling(s) Family History Reviewed.: Yes Medication/Allergy Home Medications: Dextroamphetamine/Amphetamine [Adderall 10 mg Tablet] 20 mg PO TID 11/05/19 Allergies/Adverse Reactions: No Known Allergies Allergy (Verified 11/05/19 09:41) Review of Systems All systems: reviewed and no additional remarkable complaints except as stated Cardiovascular: PRESENT: chest pain, palpitations Gastrointestinal: PRESENT: abdominal pain, nausea Psychiatric: PRESENT: anxiety Physical Exam Vital Signs: Temp Pulse Resp BP Pulse Ox 98.1 F 94 16 142/96 H 99 11/05/19 14:31 11/05/19 09:05 11/05/19 14:31 11/05/19 14:31 11/05/19 14:31 Intake & Output 11/04/19 11/05/19 11/06/19 06:59 06:59 06:59 Intake Total 1999 Balance 1999 Weight 70.8 kg General appearance: PRESENT: cooperative, mild distress, well-developed, well- nourished Head exam: PRESENT: atraumatic, normocephalic Eye exam: PRESENT: conjunctiva pink, EOMI. ABSENT: scleral icterus Ear exam: PRESENT: normal external ear exam. ABSENT: bleeding, drainage Mouth exam: PRESENT: moist, tongue midline Teeth exam: ABSENT: poor dentation Neck exam: PRESENT: full ROM. ABSENT: carotid bruit, JVD, lymphadenopathy Respiratory exam: PRESENT: symmetrical, unlabored, wheezes - Sporadic expiratory wheezes. ABSENT: accessory muscle use, prolonged expiratory phas, rales, rhonchi, tachypnea Cardiovascular exam: PRESENT: RRR, +S1, +S2, systolic murmur - 3/6 GI/Abdominal exam: PRESENT: normal bowel sounds, soft. ABSENT: distended, guarding, tenderness Rectal exam: PRESENT: deferred Gentrourinary exam: ABSENT: indwelling catheter Musculoskeletal exam: PRESENT: ambulatory, full ROM, normal inspection. ABSENT: deformity Neurological exam: PRESENT: alert, awake, oriented to person, oriented to place, oriented to time, oriented to situation, CN II-XII grossly intact. ABSENT: altered, motor sensory deficit Psychiatric exam: PRESENT: anxious. ABSENT: agitated Focused psych exam: ABSENT: delusional, paranoid, restlessness Skin exam: PRESENT: dry, normal color, warm. ABSENT: rash Results Laboratory Results: 11/05/19 09:39 11/05/19 09:39 11/05/19 11/05/19 11/05/19 09:39 09:39 09:39 WBC 12.6 H RBC 4.53 Hgb 14.9 Hct 43.1 MCV 95 MCH 32.8 MCHC 34.5 RDW 14.0 Plt Count 210 Seg Neutrophils % Not Reportable Sodium 138.0 Potassium 4.2 Chloride 104 Carbon Dioxide 26 Anion Gap 8 BUN 12 Creatinine 0.96 Est GFR ( Amer) > 60 Glucose 159 H Calcium 9.5 Total Bilirubin 0.5 AST 187 H Alkaline Phosphatase 101 C-Reactive Protein 9.9 Total Protein 7.3 Albumin 4.6 Lipase 266.5 11/05/19 11/05/19 11/05/19 09:39 09:39 12:26 Creatine Kinase 608 H CK-MB (CK-2) 6.01 H Troponin I < 0.012 < 0.012 Impressions: Chest/Abdomen CTA 11/05/19 10:57 IMPRESSION: 1. NO ABDOMINAL AORTIC ANEURYSM, DISSECTION OR SIGNIFICANT STENOSIS. 2. DIFFUSE FATTY INFILTRATION OF THE LIVER. NO OTHER SIGNIFICANT FINDINGS IN THE ABDOMEN. Assessment and Plan - Diagnosis (1) Chest pain Qualifiers: Chest pain type: other chest pain Qualified Code(s): R07.89 - Other chest pain; R07.8 - Other chest pain Is this a current diagnosis for this admission?: Yes Plan: 11/05/2019 The patient initially complained of sharp pain in the epigastric area. He said it spread to his chest. He does not have any typical radiation. He did have nausea. He did feel palpitations. His first 2 troponins are less than 0.012. His CK and CK-MB are slightly elevated but these are not as sensitive troponin. Will admit patient for observation. He will be on telemetry. If all of his troponins are undetectable then we will consider outpatient stress test. He was encouraged to stop smoking. (2) Abdominal pain Qualifiers: Abdominal location: epigastric Qualified Code(s): R10.13 - Epigastric pain Is this a current diagnosis for this admission?: Yes Plan: 11/05/2019 No this history of heavy alcohol use it could be a gastritis. I will start him on proton pump inhibitors. Lipase is negative so it is not likely pancreatitis. (3) Elevated liver enzymes Is this a current diagnosis for this admission?: Yes Plan: 11/05/2019 Most likely from fatty liver secondary to alcohol. [facility] screening panel is pending. Strong family history of alcoholism and cirrhosis. I did encourage patient to stop drinking. 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 The steatohepatitis is secondary to alcohol use. He has elevated transaminases because of this. (5) Alcohol dependence Qualifiers: Substance use status: unspecified alcohol-induced disorder Qualified Code(s): F10.29 - Alcohol dependence with unspecified alcohol-induced disorder Is this a current diagnosis for this admission?: Yes Plan: 11/05/2019 The patient states that he was drinking a lot more than the 6 beers daily that he has now. There is a strong family history of alcoholism cirrhosis. Her . It would be worth the patient's time to do inpatient detox from alcohol and cigarettes especially considering the needs of his occupation in [employer] Intoxicated on ladders is a huge safety risk. 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 It is not clear if he was intoxicated at the time. Serum alcohol level is pending. High risk of withdrawal. Benzodiazepines will be available. (6) Tobacco dependence due to cigarettes Is this a current diagnosis for this admission?: Yes Plan: 11/05/2019 Nicotine patch will be applied daily (7) ADD (attention deficit disorder) Qualifiers: Hyperactivity presence: present Attention deficit-hyperactivity disorder type: unspecified Qualified Code(s): F90.9 - Attention-deficit hyperactivity disorder, unspecified type Is this a current diagnosis for this admission?: Yes Plan: 11/05/2019 We do not carry his Adderall. The family member brings it pharmacy [id number] and it could be dispensed to the patient. Benzodiazepine therapy is available f or possible withdrawal. - Time Time Spent with patient: 35 or more minutes Smoking Cessation Education: 3 to 10 minutes Medications reviewed and adjusted accordingly: Yes Anticipated discharge: Home Within: within 24 hours
[2019-11-05] MEDS ORDERED: IPRATROPIUM/ALBUTEROL 0.5-2.5 MG/3 ML AMPUL NEB PRN (14:50)
[2019-11-05] MEDS ORDERED: ONDANSETRON 4 MG TAB.RAPDIS PO PRN (15:01)
[2019-11-05] MEDS ORDERED: ACETAMINOPHEN 325 MG TABLET PO PRN (15:01)
[2019-11-05] MEDS ORDERED: ONDANSETRON HCL INJ/PF 4 MG/2 ML SDV IV PRN (15:01)
[2019-11-05] MEDS ORDERED: TEMAZEPAM 15 MG CAPSULE PO PRN (15:01)
[2019-11-05] MEDS ORDERED: MAGNESIUM HYDROXIDE SUSP 30 ML UDCUP PO PRN (15:01)
[2019-11-05] MEDS ORDERED: METOPROLOL TARTRATE 25 MG TABLET PO ONE (15:08)
[2019-11-05] MEDS ORDERED: NICOTINE 21 MG/24 HR PATCH.TD24 TD PRN (15:09)
[2019-11-05] MEDS ORDERED: LORAZEPAM INJ 2 MG/1 ML VIAL IV PRN (15:09)
[2019-11-05] MEDS ORDERED: LORAZEPAM INJ 2 MG/1 ML VIAL IV ONE (15:10)
[2019-11-05] MEDS: NORMAL SALINE 1000 ML 1,000 ML IV PRN (16:52)
[2019-11-05] MEDS ORDERED: AMPHETAMINE PO SCH (18:00)
[2019-11-05] MEDS ORDERED: DEXTROAMPHETAMINE PO SCH (18:00)
[2019-11-05 19:26] LABS: CREATINE KINASE MB 2.53 ng/mL (<4.55)
[2019-11-05 19:29] LABS: TROPONIN I < 0.012 ng/mL
--- NOTE | 2019-11-05 19:43 | EKG REPORT ---
SEVERITY:- NORMAL ECG - SINUS RHYTHM : Confirmed by: Michelle Pederson 05-Nov-2019 19:42:49
[2019-11-05] MEDS: HEPARIN SOD (PORCINE) 5,000 UNIT/ML 1 ML VIAL SUBCUT SCH (21:20)
[2019-11-05] MEDS: METOPROLOL TARTRATE 25 MG TABLET PO SCH (21:20)
[2019-11-05] MEDS: MORPHINE SULFATE 10 MG/ML INJ IV PRN (22:18)
[2019-11-06] MEDS: NORMAL SALINE 1000 ML 1,000 ML IV PRN (02:59)
[2019-11-06] MEDS: HEPARIN SOD (PORCINE) 5,000 UNIT/ML 1 ML VIAL SUBCUT SCH (05:26)
[2019-11-06] MEDS ORDERED: PANTOPRAZOLE SODIUM 40 MG TABLET.DR PO SCH (06:00)
[2019-11-06 06:13] LABS: ALBUMIN 3.6 g/dL (3.5-5.0); ALKALINE PHOSPHATASE 114 U/L (38-126); ANION GAP 6 (5-19); ASPARTATE AMINO TRANSFERASE 328 U/L (17-59); BILIRUBIN,DIRECT 0.1 mg/dL (0.0-0.4); BLOOD UREA NITROGEN 9 mg/dL (7-20); CALCIUM 8.7 mg/dL (8.4-10.2); CARBON DIOXIDE 25 mmol/L (22-30); CHLORIDE 103 mmol/L (98-107); CHOLESTEROL 116.36 mg/dL (0-200); GLUCOSE 110 mg/dL (75-110); POTASSIUM 3.8 mmol/L (3.6-5.0); TRIGLYCERIDES 45 mg/dL (<150)
[2019-11-06 06:26] LABS: DIRECT LDL < 30 mg/dL (<100)
[2019-11-06 08:05] VITALS: BP 134/89
[2019-11-06] MEDS: MORPHINE SULFATE 10 MG/ML INJ IV PRN (08:14)
--- NOTE | 2019-11-06 09:36 | PDOC DISCHARGE SUMMARY ---
Impression - Admit/DC Date/PCP Admission Date/Primary Care Provider: 11/05/19 12:56 NORBERT CASTANO DO Discharge Date: 11/06/19 - Discharge Diagnosis (1) Chest pain Is this a current diagnosis for this admission?: Yes (2) Abdominal pain Is this a current diagnosis for this admission?: Yes (3) Elevated liver enzymes Is this a current diagnosis for this admission?: Yes (4) Steatohepatitis due to ingestible alcohol Is this a current diagnosis for this admission?: Yes (5) Alcohol dependence Is this a current diagnosis for this admission?: Yes (6) Tobacco dependence due to cigarettes Is this a current diagnosis for this admission?: Yes (7) ADD (attention deficit disorder) Is this a current diagnosis for this admission?: Yes (8) Hepatitis, alcoholic Is this a current diagnosis for this admission?: Yes - Assessment Summary: Patient presented with abdominal pain not chest pain. He has fatty liver with elevated transaminases. - Additional Information Resuscitation Status: Full Code Discharge Diet: Regular Discharge Activity: Activity As Tolerated Referrals: NORBERT CASTANO DO [Primary Care Provider] - Follow up as needed Prescriptions: Citalopram Hydrobromide [Citalopram HBr] 10 mg PO DAILY #30 tablet Home Medications: Dextroamphetamine/Amphetamine [Adderall 10 mg Tablet] 20 mg PO TID 11/05/19 Citalopram Hydrobromide [Citalopram HBr] 10 mg PO DAILY #30 tablet 11/06/19 Nicotine [Nicoderm 21 mg/24 Hr Transderm Patch] 1 each TD DAILYP PRN patch.td24 11/06/19 History of Present Illiness History of Present Illness: SYMONE HIGHTOWER is a 24 year old male with a history of cocaine abuse and myocardial infarction approximately 1 year ago in [place]. He states that today he woke up with a sharp pain in his stomach. It then began to hurt in his chest. He denied nausea and vomiting. He was not having any diarrhea. He was diaphoretic and lightheaded but not short of breath. When the pain increased he felt it prudent to go to the emergency department. Currently he feels quite achy. He is anxious. He denies chest discomfort at this time. Evaluation in the emergency department was negative for pulmonary embolus. CT scan of the abdomen revealed fatty liver. He does drink 6 beers or more daily. His first 2 troponins were less than 0.012. Tox screen was positive for marijuana and amphetamines. He does have a prescription for Adderall. Patient will be admitted for observation. We will finish his serial troponins. 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 He will be monitored on telemetry. A hepatitis panel has been ordered. I added a serum alcohol level to his blood work as well. He smokes 1 pack of cigarettes daily and so we will apply a nicotine patch. Because of his alcohol use liberal benzodiazepines will be available. Hospital Course Hospital Course: Unremarkable. Benzodiazepines and pain medications available for withdrawal symptoms. Nicotine patch was utilized as well. The patient will be discharged and he will follow-up with Dr. Castano. I did start him on low-dose antidepressant therapy and we will provide him with information on detox centers. Physical Exam Vital Signs: Temp Pulse Resp BP Pulse Ox 98.9 F 89 16 134/89 H 99 11/06/19 08:00 11/06/19 08:00 11/06/19 08:00 11/06/19 08:00 11/06/19 08:00 Intake & Output 11/05/19 11/06/19 11/07/19 06:59 06:59 06:59 Intake Total 4275 Output Total 0 Balance 4275 Weight 74.8 kg General appearance: PRESENT: mild distress Respiratory exam: PRESENT: clear to auscultation bry Cardiovascular exam: PRESENT: RRR, +S1, +S2 GI/Abdominal exam: PRESENT: soft, tenderness - Right upper quadrant Rectal exam: PRESENT: deferred Gentrourinary exam: ABSENT: indwelling catheter Extremities exam: ABSENT: pedal edema Musculoskeletal exam: PRESENT: ambulatory Neurological exam: PRESENT: alert, awake, oriented to person, oriented to place, oriented to time, oriented to situation, CN II-XII grossly intact Psychiatric exam: PRESENT: depressed - Patient looks exasperated. Clearly depressed. Results Laboratory Results: WBC 12.6 10^3/uL (4.0-10.5) H 11/05/19 09:39 RBC 4.53 10^6/uL (4.35-5.55) 11/05/19 09:39 Hgb 14.9 g/dL (13.5-17.0) 11/05/19 09:39 Hct 43.1 % (37.9-51.0) 11/05/19 09:39 MCV 95 fl (80-97) 11/05/19 09:39 MCH 32.8 pg (27.0-33.4) 11/05/19 09:39 MCHC 34.5 g/dL (32.0-36.0) 11/05/19 09:39 RDW 14.0 % (11.5-14.0) 11/05/19 09:39 Plt Count 210 10^3/uL (150-450) 11/05/19 09:39 Lymph % (Auto) Not Reportable 11/05/19 09:39 Hawkins % (Auto) Not Reportable 11/05/19 09:39 Eos % (Auto) Not Reportable 11/05/19 09:39 Baso % (Auto) Not Reportable 11/05/19 09:39 Absolute Neuts (auto) Not Reportable 11/05/19 09:39 Absolute Lymphs (auto) Not Reportable 11/05/19 09:39 Absolute Monos (auto) Not Reportable 11/05/19 09:39 Absolute Eos (auto) Not Reportable 11/05/19 09:39 Absolute Basos (auto) Not Reportable 11/05/19 09:39 Total Counted 100 11/05/19 09:39 Seg Neutrophils % Not Reportable 11/05/19 09:39 Seg Neuts % (Manual) 85 % (42-78) H 11/05/19 09:39 Lymphocytes % (Manual) 7 % (13-45) L 11/05/19 09:39 Atypical Lymphs % 4 % (0) 11/05/19 09:39 Monocytes % (Manual) 4 % (3-13) 11/05/19 09:39 Eosinophils % (Manual) 0 % (0-6) 11/05/19 09:39 Basophils % (Manual) 0 % (0-2) 11/05/19 09:39 Abs Neuts (Manual) 10.7 10^3/uL (1.7-8.2) H 11/05/19 09:39 Abs Lymphs (Manual) 0.9 10^3/uL (0.5-4.7) 11/05/19 09:39 Abs Monocytes (Manual) 0.5 10^3/uL (0.1-1.4) 11/05/19 09:39 Absolute Eos (Manual) 0.0 10^3/uL (0.0-0.6) 11/05/19 09:39 Abs Basophils (Manual) 0.0 10^3/uL (0.0-0.2) 11/05/19 09:39 Platelet Comment ADEQUATE 11/05/19 09:39 RBC Morph Comment NORMO-CYTIC/CHROMIC 11/05/19 09:39 PT 11.5 SEC (11.4-15.4) 11/05/19 09:39 INR 0.84 11/05/19 09:39 APTT 30.0 SEC (23.5-35.8) 11/05/19 09:39 D-Dimer 0.57 ug/mL (0.00-0.50) H 11/05/19 09:39 Sodium 133.6 mmol/L (137-145) L 11/06/19 04:38 Potassium 3.8 mmol/L (3.6-5.0) 11/06/19 04:38 Chloride 103 mmol/L (98-107) 11/06/19 04:38 Carbon Dioxide 25 mmol/L (22-30) 11/06/19 04:38 Anion Gap 6 (5-19) 11/06/19 04:38 BUN 9 mg/dL (7-20) 11/06/19 04:38 Creatinine 0.83 mg/dL (0.52-1.25) 11/06/19 04:38 Est GFR ( Amer) > 60 (>60) 11/06/19 04:38 Est GFR (MDRD) Non-Af > 60 (>60) 11/06/19 04:38 Glucose 110 mg/dL (75-110) 11/06/19 04:38 Calcium 8.7 mg/dL (8.4-10.2) 11/06/19 04:38 Total Bilirubin 1.0 mg/dL (0.2-1.3) 11/06/19 04:38 Direct Bilirubin 0.1 mg/dL (0.0-0.4) 11/06/19 04:38 Neonat Total Bilirubin Not Reportable 11/06/19 04:38 Neonat Direct Bilirubin Not Reportable 11/06/19 04:38 Neonat Indirect Bili Not Reportable 11/06/19 04:38 AST 328 U/L (17-59) H 11/06/19 04:38 ALT 193 U/L (<50) H 11/06/19 04:38 Alkaline Phosphatase 114 U/L (38-126) 11/06/19 04:38 Creatine Kinase 358 U/L (55-170) H 11/05/19 18:05 CK-MB (CK-2) 2.53 ng/mL (<4.55) 11/05/19 18:05 Troponin I < 0.012 ng/mL 11/05/19 18:05 C-Reactive Protein 9.9 mg/L (<10.0) 11/05/19 09:39 Total Protein 6.0 g/dL (6.3-8.2) L 11/06/19 04:38 Albumin 3.6 g/dL (3.5-5.0) 11/06/19 04:38 Triglycerides 45 mg/dL (<150) 11/06/19 04:38 Cholesterol 116.36 mg/dL (0-200) 11/06/19 04:38 LDL Cholesterol Direct < 30 mg/dL (<100) 11/06/19 04:38 VLDL Cholesterol 9.0 mg/dL (10-31) L 11/06/19 04:38 HDL Cholesterol 93 mg/dL (>40) 11/06/19 04:38 Lipase 266.5 U/L (23-300) 11/05/19 09:39 Urine Opiates Screen NEGATIVE 11/05/19 10:04 Urine Methadone Screen NEGATIVE 11/05/19 10:04 Ur Barbiturates Screen NEGATIVE 11/05/19 10:04 Ur Phencyclidine Scrn NEGATIVE 11/05/19 10:04 Ur Amphetamines Screen UNCONFIRMED POSITIVE 11/05/19 10:04 U Benzodiazepines Scrn NEGATIVE 11/05/19 10:04 Urine Cocaine Screen NEGATIVE 11/05/19 10:04 U Marijuana (THC) Screen UNCONFIRMED POSITIVE 11/05/19 10:04 Serum Alcohol 51 mg/dL (NONE DETECTED) 11/05/19 09:39 11/05/19 11/05/19 11/05/19 09:39 12:26 18:05 CK-MB (CK-2) 6.01 H 2.53 Troponin I < 0.012 < 0.012 < 0.012 Impressions: Chest/Abdomen CTA 11/05/19 10:57 IMPRESSION: 1. NO ABDOMINAL AORTIC ANEURYSM, DISSECTION OR SIGNIFICANT STENOSIS. 2. DIFFUSE FATTY INFILTRATION OF THE LIVER. NO OTHER SIGNIFICANT FINDINGS IN THE ABDOMEN. Chest/Abdomen CTA 11/05/19 10:57 IMPRESSION: NORMAL CTA OF THE CHEST. NO PULMONARY EMBOLI. Plan Health Concerns: Ongoing alcohol use will lead to cirrhosis and premature . Ongoing cigarette use will lead to atherosclerosis with high risk of myocardial infarction and stroke. Patient is extremely depressed and needs to focus his treatment on that along with stopping drinking and smoking. Plan of Treatment: Proton pump inhibitor to help prevent alcohol gastritis. Patient must cease using alcohol and tobacco. He needs to focus on depression. Goals: Abstinence from alcohol and tobacco Time Spent: Greater than 30 Minutes Stroke Is this a Stroke Patient?: No Acute Heart Failure - Is this a Heart Failure Patient?: No
[2019-11-06] MEDS: METOPROLOL TARTRATE 25 MG TABLET PO SCH (09:38)
[2019-11-07 05:37] LABS: HEPATITS B SURFACE ANTIGEN Negative (Negative)
[2019-11-07 07:03] LABS: HEPATITIS C VIRUS ANTIBODY <0.1 s/co ratio (0.0-0.9)
== END 2019-11-06 12:50 | disposition home or self-care (01) ==
LOC: ER 08:55 → EH 12:56 → 4N 15:27
PROVIDERS: ADMIT Hospitalist; ATTEND Hospitalist
DX: R07.89 Other chest pain (principal); R10.13 Epigastric pain; K70.10 Alcoholic hepatitis without ascites; F90.9 Attention-deficit hyperactivity disorder, unspecified type; R74.8 Abnormal levels of other serum enzymes; K76.0 Fatty (change of) liver, not elsewhere classified; F10.29 Alcohol dependence with unspecified alcohol-induced disorder; F17.210 Nicotine dependence, cigarettes, uncomplicated; F14.11 Cocaine abuse, in remission; R42 Dizziness and giddiness; R61 Generalized hyperhidrosis; F32.9 Major depressive disorder, single episode, unspecified; F41.9 Anxiety disorder, unspecified; R00.2 Palpitations; F12.10 Cannabis abuse, uncomplicated; R06.02 Shortness of breath; R20.0 Anesthesia of skin; R20.2 Paresthesia of skin; I25.2 Old myocardial infarction; Z79.899 Other long term (current) drug therapy; Z82.49 Family history of ischemic heart disease and other diseases of the circulatory system; Z81.1 Family history of alcohol abuse and dependence; Z83.79 Family history of other diseases of the digestive system
CPT/HCPCS: 93005; 99285; 96361; 96374; 36415 ×2; 82553; 80307 ×2; 82550; 83690; 85025; 85610; 85730; 86140; 80053 ×2; 84484; 85379; 80061; 80074; 71275; 74175; 93010; 99406; J1644 ×2; J1885; J2270 ×2; J2060 ×2; J3490 ×2; J7030 ×2; G0378